=== PATIENT | female | born 1970 | race Two or more races ===

== ENCOUNTER 2020-10-26 00:19 | Emergency (ER) | payer OTHER ==
[2020-10-26 00:41] VITALS: PULSE 89; BMI 38.0
[2020-10-26 03:02] VITALS: BP 155/97
== END 2020-10-26 03:48 | disposition home or self-care (01) ==
LOC: JER 00:19
DX: R03.1 Nonspecific low blood-pressure reading (principal)
CPT/HCPCS: 99281-25